=== PATIENT | female | born 1975 | race Caucasian/White ===

== ENCOUNTER → 2018-11-01 | Outpatient (CLI) | payer BC ==
--- NOTE | 2018-11-01 12:53 | CT ---
EXAMINATION TYPE: CT neck chest w con DATE OF EXAM: 11/01/2018 COMPARISON: None HISTORY: 42-year-old female left side neck lump. Enlarged lymph nodes. TECHNIQUE: Contiguous axial scanning of the neck and chest performed with IV Contrast, patient inject ed with 100 mL of Isovue 300. Coronal/sagittal reconstructions performed. CT DLP: 542.5 mGycm Automated exposure control for dose reduction was used. FINDINGS: Neck: Visualized intracranial structures, orbits and globes, sinuses, and mastoid air cells appear clear. Nasopharynx and oropharynx are clear. The epiglottis and prevertebral soft tissues are within normal limits. The glottic and subglottic structures as well as the tracheal column are clear. Thyroid and submandibular glands are satisfactory. Parotid glands are atrophic. A few scattered cervical lymph nodes measure up to 6 mm short axis and are nonenlarged. However, more inferiorly along the left base of the neck in the region of the posterior triangle/supraclavicular r egion, couple mildly enlarged, rounded lymph nodes measure up to 1.2 cm. Additional numerous nonenlar ged lymph nodes are present just adjacent to the supraclavicular region measuring up to 7 mm. Bones: Mild degenerative disc disease C5-C6. CHEST: Bilateral breast implants are demonstrated. No axillary, mediastinal, or hilar lymphadenopathy. Heart normal size without pericardial effusion. Aorta normal caliber with conventional arch vessel branching anatomy. Visualized upper abdomen shows a probable small 8 mm cortical cyst anteriorly in the left kidney and cholecystectomy clips. No consolidation or pleural effusion. No dominant suspicious pulmonary nodules seen. Bones: Scattered small endplate Schmorl's nodes throughout and normal. Sternal foramina. COMBINED IMPRESSION (neck and chest): 1. ROUNDED AND MILDLY ENLARGED LEFT SUPRACLAVICULAR LYMPH NODES MEASURING UP TO 1.2 CM. THESE ARE NON SPECIFIC AND COULD REPRESENT LYMPHADENITIS OR A REACTIVE ETIOLOGY. METASTATIC DISEASE OR LYMPHOMA ARE NOT EXCLUDED FROM THE DIFFERENTIAL AT THIS TIME. IF THESE LYMPH NODES SHOW CLINICALLY SUSPICIOUS FEA TURES, TISSUE SAMPLING CAN BE PERFORMED. IF AN INFLAMMATORY ETIOLOGY IS SUSPECTED, CLINICAL AND POSSI BLE ULTRASOUND FOLLOW-UP CAN BE PERFORMED TO ENSURE INVOLUTION. 2. NO OTHER SUSPICIOUS LYMPH NODES OR OTHER SPECIFIC ABNORMALITY SEEN IN THE NECK OR CHEST.
[2018-11-01 12:56] LABS: ALT 26 U/L (9-52); AST 14 U/L (14-36); Albumin 3.3 g/dL (3.5-5.0); Alkaline Phosphatase 57 U/L (38-126); Anion Gap 8 mmol/L; Blood Urea Nitrogen 10 mg/dL (7-17); Calcium 8.5 mg/dL (8.4-10.2); Carbon Dioxide 25 mmol/L (22-30); Chloride 100 mmol/L (98-107); Glucose 96 mg/dL (74-99); Potassium 3.7 mmol/L (3.5-5.1); Sodium 133 mmol/L (137-145); Total Bilirubin 0.2 mg/dL (0.2-1.3); Total Protein 5.9 g/dL (6.3-8.2)
== END | disposition home or self-care (01) ==
LOC: RADCTMAIN 11:29
PROVIDERS: ATTEND Family Medicine
DX: R59.0 Localized enlarged lymph nodes (principal); R05 Cough
CPT/HCPCS: 80053; 70491; 71260; Q9967